=== PATIENT | female | born 1970 | race American Indian/Alaskan Native ===

== ENCOUNTER 2018-04-09 19:49 | Emergency (ER) | payer MEDICAID ==
[2018-04-09 20:15] VITALS: BP 119/73
[2018-04-09 20:36] LABS: Basophils # (Auto) 0.1 K/mm3 (0.0-0.1); Basophils % (Auto) 0.8 % (0.0-1.8); Eosinophils # (Auto) 0.2 K/mm3 (0.0-0.4); Eosinophils % (Auto) 2.3 % (0.0-4.3); Hematocrit 41.1 % (30.3-42.9); Hemoglobin 13.6 gm/dl (10.1-14.3); Lymphocytes # (Auto) 2.9 K/mm3 (1.2-5.4); Lymphocytes % (Auto) 42.4 % (13.4-35.0); Mean Corpuscular HGB Conc 33 % (30-34); Mean Corpuscular Volume 89 fl (79-97); Monocytes # (Auto) 0.4 K/mm3 (0.0-0.8); Monocytes % (Auto) 6.4 % (0.0-7.3); Platelet Count 278 K/mm3 (140-440); Red Cell Distribution Width 15.4 % (13.2-15.2)
[2018-04-09 21:12] LABS: Alanine Aminotransferase 13 units/L (7-56); Albumin 4.4 g/dL (3.9-5); BUN/Creatinine Ratio 10; Blood Urea Nitrogen 9 mg/dL (7-17); Calcium 9.7 mg/dL (8.4-10.2); Hemolysis Index 4
[2018-04-09] MEDS ORDERED: NORCO 5/325 PO ONE ×2 (21:46→23:16)
--- NOTE | 2018-04-09 21:50 | Emergency Department Report ---
ED Extremity Problem HPI - General Chief complaint: Extremity Problem,Nontraumatic Stated complaint: BILATERAL LOWER LEG PAIN Time Seen by Provider: 04/09/18 21:38 Source: patient, EMS Mode of arrival: Wheelchair Limitations: No Limitations - History of Present Illness Initial comments: Patient is a 47-year-old female with history of bilateral DVTs and PEs patient self DC'd Lovenox and Coumadin 9 months ago states she started having bilateral lower extremity pain swelling or calf tenderness 1 week ago now unable to ambulate on left leg pain is described at 8/10 tightness sensation patient states any shortness of breath there's no wheezing no nausea vomiting no chest pain no fever chills MD Complaint: extremity pain, extremity swelling Onset/Timin -: week(s) Location: bilateral lower extremity History of Same: Yes (bilat DVT ) Radiation: distal Severity scale (0 -10): 6 Quality: aching, sharp Consistency: constant Improves with: nothing Worsens with: walking Associated Symptoms: shortness of breath - Related Data Allergies Allergy/AdvReac Type Severity Reaction Status Date / Time No Known Allergies Allergy Unverified 04/09/18 20:05 ED Review of Systems ROS: Stated complaint: BILATERAL LOWER LEG PAIN Other details as noted in HPI Constitutional: denies: chills, fever Eyes: denies: eye pain, eye discharge, vision change ENT: denies: ear pain, throat pain Respiratory: denies: cough, shortness of breath, wheezing Cardiovascular: denies: chest pain, palpitations Endocrine: no symptoms reported Gastrointestinal: denies: abdominal pain, nausea, vomiting, diarrhea Genitourinary: denies: urgency, dysuria, discharge Musculoskeletal: myalgia, other (bilat le edema pain distal pulse +3 bialt calf tenderness bilat ) Skin: denies: rash, lesions Neurological: denies: headache, weakness, paresthesias Psychiatric: denies: anxiety, depression Hematological/Lymphatic: denies: easy bleeding, easy bruising ED Past Medical Hx - Past Medical History Previous Medical History?: Yes Hx Deep Vein Thrombosis: Yes Additional medical history: coumadin - Surgical History Past Surgical History?: No - Social History Smoking Status: Former Smoker Substance Use Type: None ED Physical Exam - General Limitations: No Limitations General appearance: alert, in no apparent distress - Head Head exam: Present: atraumatic, normocephalic - Eye Eye exam: Present: normal appearance, PERRL, EOMI Pupils: Present: normal accommodation - ENT ENT exam: Present: mucous membranes moist - Neck Neck exam: Present: normal inspection, full ROM. Absent: lymphadenopathy, thyromegaly - Respiratory Respiratory exam: Present: normal lung sounds bilaterally. Absent: respiratory distress, wheezes, stridor, chest wall tenderness - Cardiovascular Cardiovascular Exam: Present: regular rate, normal rhythm, normal heart sounds. Absent: systolic murmur, diastolic murmur, rubs, gallop - GI/Abdominal GI/Abdominal exam: Present: soft, normal bowel sounds. Absent: distended, tenderness, bruit, hernia - Rectal Rectal exam: Present: deferred - Extremities Exam Extremities exam: Present: full ROM, tenderness (bilat calf tenderness swelling distal pulses +3 ), normal capillary refill, pedal edema (mild ), calf tenderness (bilat ). Absent: joint swelling - Expanded Lower Extremity Exam Left Lower Leg exam: Present: full ROM, tenderness, swelling, Briana's sign. Absent: abrasion, laceration, ecchymosis, deformity, crepidus, dislocation, erythema, palpable cord Ankle exam: Present: normal inspection, full ROM Foot/Toe exam: Present: normal inspection, full ROM Gait: Positive: observed and limited by pain Right Lower Leg exam: Present: full ROM, tenderness, swelling, Briana's sign. Absent: abrasion, laceration, ecchymosis, deformity, crepidus, dislocation, erythema, palpable cord Gait: Positive: observed and limited by pain - Back Exam Back exam: Present: normal inspection, full ROM, muscle spasm. Absent: tenderness, CVA tenderness (R), CVA tenderness (L), paraspinal tenderness, vertebral tenderness, rash noted - Neurological Exam Neurological exam: Present: alert, oriented X3, CN II-XII intact, reflexes normal. Absent: motor sensory deficit - Psychiatric Psychiatric exam: Present: normal affect, normal mood - Skin Skin exam: Present: warm, dry, intact, normal color. Absent: rash ED Course Vital Signs 04/09/18 20:06 Temperature 98.7 F Pulse Rate 83 Respiratory 20 Rate Blood Pressure 119/73 O2 Sat by Pulse 95 Oximetry ED Medical Decision Making - Lab Data Result diagrams: 04/09/18 20:28 04/09/18 20:28 - Radiology Data Radiology results: report reviewed, image reviewed FINAL REPORT PROCEDURE: CT ANGIO CHEST TECHNIQUE: Computerized tomographic angiography of the chest was performed after the IV injection of iodinated nonionic contrast including image processing. The image data was postprocessed using 2- dimensional multiplanar reformatted (MPR) and 3-dimensional (MIP and/or volume rendered) techniques. HISTORY: sob COMPARISON: No prior studies are available for comparison. FINDINGS: Heart and pericardium: Normal. Thoracic aorta: Normal. Pulmonary vasculature: Normal. Lymph nodes: No enlarged thoracic lymph nodes. Lungs: The lungs are clear. No infiltrate, effusion or pneumothorax. Central airway is patent. Pleural space: No effusion, thickening, or pneumothorax. Musculoskeletal structures: No significant abnormality. Upper abdominal structures: There is a small hiatal hernia.. IMPRESSION: There is no evidence of pulmonary arterial emboli. The lungs are clear without infiltrate, effusion or pneumothorax. Transcribed By: [facility] Dictated By: AMY QUINONES MD Electronically Authenticated By: AMY QUINONES MD Signed Date/Time: 04/09/18 7938 - Medical Decision Making CT is normal , DDimer 349, pt given Lovenox 100mg sq, hydrocodone, will dc to home with rx for tylenol 3, pt return in am for CV doppler dvt studies and return to ed if positive follow up with pcp if negativen pt verbalized agreement and understanding of same pt to home via po and family member at this time. Critical care attestation.: If time is entered above; I have spent that time in minutes in the direct care of this critically ill patient, excluding procedure time. ED Disposition Clinical Impression: Bilateral edema of lower extremity, Bilateral leg pain Disposition: DC-01 TO HOME OR SELFCARE Is pt being admited?: No Does the pt Need Aspirin: No Condition: Stable Referrals: ALEXIS MARTINEZ DO [Primary Care Provider] - 3-5 Days
[2018-04-09 22:09] LABS: INR 0.9 (0.87-1.13); Partial Thromboplastin Time 28.9 Sec. (24.2-36.6)
--- NOTE | 2018-04-09 23:02 | Cat Scan Report ---
FINAL REPORT PROCEDURE: CT ANGIO CHEST TECHNIQUE: Computerized tomographic angiography of the chest was performed after the IV injection of iodinated nonionic contrast including image processing. The image data was postprocessed using 2-dim ensional multiplanar reformatted (MPR) and 3-dimensional (MIP and/or volume rendered) techniques. HISTORY: sob COMPARISON: No prior studies are available for comparison. FINDINGS: Heart and pericardium: Normal. Thoracic aorta: Normal. Pulmonary vasculature: Normal. Lymph nodes: No enlarged thoracic lymph nodes. Lungs: The lungs are clear. No infiltrate, effusion or pneumothorax. Central airway is patent. Pleural space: No effusion, thickening, or pneumothorax. Musculoskeletal structures: No significant abnormality. Upper abdominal structures: There is a small hiatal hernia.. IMPRESSION: There is no evidence of pulmonary arterial emboli. The lungs are clear without infiltrate, effusion or pneumothorax.
[2018-04-09] MEDS ORDERED: LOVENOX SUB-Q ONE (23:07)
== END 2018-04-09 23:40 | disposition home or self-care (01) ==
LOC: ED 19:49
DX: R60.0 Localized edema (principal); Z87.891 Personal history of nicotine dependence; Z86.718 Personal history of other venous thrombosis and embolism
CPT/HCPCS: 36415; 71275; 80053; 84484; 85025; 85379; 85610; 85730; 96372; 99284; J1650; Q9967

== ENCOUNTER 2019-02-11 09:23 | Emergency (ER) | payer MEDICAID ==
[2019-02-11 09:32] VITALS: BP 117/84
[2019-02-11] MEDS ORDERED: oxyCODONE /ACETAMINOPHEN 5-325MG TAB PO STA (10:44)
--- NOTE | 2019-02-11 11:35 | Vascular Lab Report ---
DUPLEX DOPPLER LOWER EXTREMITY VEINS, RIGHT INDICATION: calf pain and swelling. TECHNIQUE: Duplex doppler imaging was performed through the veins of the right lower extremity using venous comp ression and other maneuvers. COMPARISON: None available. FINDINGS: Common femoral vein: There is a linear band in the right common femoral vein this likely indicates ch ronic changes from prior DVT. This does not appear to be an acute DVT. Superficial femoral vein: Negative. Popliteal vein: Negative. Calf veins: Negative. Additional findings: There is some edema in the soft tissue along the lateral aspect of the right kne e IMPRESSION: 1. Bandlike density is noted in the right common femoral vein characteristic of chronic changes from prior DVT. No acute DVT is identified on today's study. 2. There is edema in the soft tissue along the lateral aspect of the knee. Signer Name: Gopal Wang MD Signed: 02/11/2019 11:30 AM Workstation Name: [id number]
--- NOTE | 2019-02-11 11:40 | XRay Report ---
CHEST 2 VIEWS INDICATION / CLINICAL INFORMATION: cough. COMPARISON: None available. FINDINGS: SUPPORT DEVICES: None. HEART / MEDIASTINUM: No significant abnormality. LUNGS / PLEURA: No significant pulmonary or pleural abnormality. .No pneumothorax. ADDITIONAL FINDINGS: No significant additional findings. IMPRESSION: 1. No acute findings. Signer Name: Gopal Wang MD Signed: 02/11/2019 11:36 AM Workstation Name: [id number]
--- NOTE | 2019-02-11 12:33 | Emergency Department Report ---
ED General Adult HPI - General Chief complaint: Extremity Injury, Lower Stated complaint: LEG PAIN/COLD/HEARTBURN Time Seen by Provider: 02/11/19 10:16 Source: patient, family Mode of arrival: Wheelchair Limitations: No Limitations - History of Present Illness Initial comments: 48-year-old morbidly obese Afro[place] female with a reported past medical history of lower extremity DVTs requiring Coumadin therapy which she has discontinued several months (over 1 year) ago doing to her doctor been unable to get her INR to appropriate range presents presents emergency department today with family complaining of a one to two-week history of of waxing and waning right calf pain associated with she feels a swelling. She also been having cough cold and congestion with yellow and green sputum production over the last 3 weeks have reports no fever, hemoptysis, hematemesis, hematochezia, chest pain, palpitations, nausea or vomiting. She does report having excessive acid reflux flareups with minimal oral intake. Severity scale (0 -10): 9 Quality: aching Consistency: constant Improves with: none Worsens with: movement Associated Symptoms: denies other symptoms, cough. denies: malaise, nausea/vomi ting, rash, syncope, weakness - Related Data Previous Rx's Medication Instructions Recorded Last Taken Type Acetaminophen/Codeine [Tylenol 1 tab PO Q6H PRN #12 tab 04/09/18 Unknown Rx /Codeine # 3 tab] ALBUTEROL Inhaler (OR & NICU) 2 puff IH QID PRN #1 inhalation 02/11/19 Unknown Rx [ProAir HFA Inhaler] Azithromycin [Zithromax] 500 mg PO QDAY #5 tablet 02/11/19 Unknown Rx predniSONE [Deltasone] 50 mg PO QDAY #5 tab 02/11/19 Unknown Rx Allergies Allergy/AdvReac Type Severity Reaction Status Date / Time No Known Allergies Allergy Unverified 04/09/18 20:05 ED Review of Systems ROS: Stated complaint: LEG PAIN/COLD/HEARTBURN Other details as noted in HPI Comment: All other systems reviewed and negative ED Past Medical Hx - Past Medical History Previous Medical History?: Yes Hx Deep Vein Thrombosis: Yes Additional medical history: coumadin - Surgical History Past Surgical History?: No - Social History Smoking Status: Never Smoker Substance Use Type: Alcohol - Medications Home Medications: Home Medications Medication Instructions Recorded Confirmed Last Taken Type Acetaminophen/Codeine [Tylenol 1 tab PO Q6H PRN #12 tab 04/09/18 Unknown Rx /Codeine # 3 tab] ALBUTEROL Inhaler (OR & NICU) 2 puff IH QID PRN #1 inhalation 02/11/19 Unknown Rx [ProAir HFA Inhaler] Azithromycin [Zithromax] 500 mg PO QDAY #5 tablet 02/11/19 Unknown Rx predniSONE [Deltasone] 50 mg PO QDAY #5 tab 02/11/19 Unknown Rx ED Physical Exam - General Limitations: No Limitations General appearance: alert, in no apparent distress - Head Head exam: Present: atraumatic, normocephalic - Eye Eye exam: Present: normal appearance - ENT ENT exam: Present: mucous membranes moist - Neck Neck exam: Present: normal inspection. Absent: lymphadenopathy - Respiratory Respiratory exam: Present: normal lung sounds bilaterally, rhonchi. Absent: respiratory distress, chest wall tenderness, accessory muscle use - Cardiovascular Cardiovascular Exam: Present: regular rate, normal rhythm. Absent: systolic murmur, diastolic murmur, rubs, gallop - GI/Abdominal GI/Abdominal exam: Present: soft, normal bowel sounds - Extremities Exam Extremities exam: Present: normal inspection, tenderness - Expanded Lower Extremity Exam Right Lower Leg exam: Present: tenderness, swelling (no pitting edema with minimal swelling to the legs bilaterally), Briana's sign (some discomfort with Homans sign noted). Absent: abrasion, laceration, ecchymosis, deformity, dislocation, palpable cord Foot/Toe exam: Present: normal inspection Neuro vascular tendon exam: Present: no vascular compromise - Back Exam Back exam: Present: normal inspection - Neurological Exam Neurological exam: Present: alert, oriented X3 - Psychiatric Psychiatric exam: Present: normal affect, normal mood - Skin Skin exam: Present: warm, dry, intact, normal color. Absent: rash ED Course Vital Signs 02/11/19 09:28 Temperature 97.6 F Pulse Rate 74 Respiratory 18 Rate Blood Pressure 117/84 O2 Sat by Pulse 97 Oximetry ED Medical Decision Making - Radiology Data Radiology results: report reviewed [facility] [address] [place] [address] Vascular Lab Report Signed Patient: JAYASHREE LEWIS MR#: [id number] : 1970 Acct:[id number] Age/Sex: 48 / F ADM Date: 02/11/19 Loc: ED Attending Dr: Ordering Physician: CEZAR CLANCY Date of Service: 02/11/19 Procedure(s): VL venous duplex LE RT Accession Number(s): [id number] cc: CEZAR CLANCY DUPLEX DOPPLER LOWER EXTREMITY VEINS, RIGHT INDICATION: calf pain and swelling. TECHNIQUE: Duplex doppler imaging was performed through the veins of the right lower extremity using venous compression and other maneuvers. COMPARISON: None available. FINDINGS: Common femoral vein: There is a linear band in the right common femoral vein this likely indicates chronic changes from prior DVT. This does not appear to be an acute DVT. Superficial femoral vein: Negative. Popliteal vein: Negative. Calf veins: Negative. Additional findings: There is some edema in the soft tissue along the lateral aspect of the right knee IMPRESSION: 1. Bandlike density is noted in the right common femoral vein characteristic of chronic changes from prior DVT. No acute DVT is identified on today's study. 2. There is edema in the soft tissue along the lateral aspect of the knee. Signer Name: Gopal Wang MD Signed: 02/11/2019 11:30 AM Workstation Name: [id number] Transcribed By: SS Dictated By: Gopal Wang MD Electronically Authenticated By: Gopal Wang MD Signed Date/Time: 02/11/19 [address] [address] [place] [address] XRay Report Signed Patient: JAYASHREE LEWIS MR#: [id number] : 1970 Acct:[id number] Age/Sex: 48 / F ADM Date: 02/11/19 Loc: ED Attending Dr: Ordering Physician: CEZAR CLANCY Date of Service: 02/11/19 Procedure(s): XR chest routine 2V Accession Number(s): [id number] cc: CEZAR CLANCY Fluoro Time In Minutes: CHEST 2 VIEWS INDICATION / CLINICAL INFORMATION: cough. COMPARISON: None available. FINDINGS: SUPPORT DEVICES: None. HEART / MEDIASTINUM: No significant abnormality. LUNGS / PLEURA: No significant pulmonary or pleural abnormality. .No pneumothorax. ADDITIONAL FINDINGS: No significant additional findings. IMPRESSION: 1. No acute findings. Signer Name: Gopal Wang MD Signed: 02/11/2019 11:36 AM Workstation Name: [id number] Transcribed By: SS Dictated By: Gopal Wang MD Electronically Authenticated By: Gopal Wang MD Signed Date/Time: 02/11/19 1136 DD/ 1127 - Medical Decision Making Ms Lewis presents with acute cough, most consistent with bronchitis. Differential diagnosis includes asthma, pneumonia, hyperactive airway disease, seasonal allergies. Presentation not consistent with acute bacterial pneumonia, influenza, asthma, transient airway hyperresponsiveness. Presentation not consistent with chronic causes of cough (including GERD, asthma, postnasal discharge, medication side effect, CHF, lung cancer or mass). Plan: CXR, supportive care, reassess Discussed with _ natural course of fever with viral illness, fever's function in body in fighting viral pathogens, my concern more for how a patient appears and acts (lethargy, irritability no po intake) as opposed to specific height of fever, expectation that fever will return when antipyretics wear off and normality of that occurrence, and appropriate dosing of antipyretics Critical care attestation.: If time is entered above; I have spent that time in minutes in the direct care of this critically ill patient, excluding procedure time. ED Disposition Clinical Impression: Cough, Right leg pain, Leg edema Disposition: DC-01 TO HOME OR SELFCARE Is pt being admited?: No Does the pt Need Aspirin: No Condition: Stable Instructions: Leg Edema (ED), Cold Symptoms (ED) Additional Instructions: Follow up with your Primary Care Doctor within 48-72 hours for further evaluation. Please rest and drink plenty of fluids to remain hydrated. Please wash your hands regularly. Please take Acetaminophen every 6 hours for pain or temp greater than 100. If you have any worsening or continued fever, chills, weakness, nausea, vomiting, abdominal pain return to ED. - General Chief Complaint: Extremity Injury, Lower Stated Complaint: LEG PAIN/COLD/HEARTBURN Time Seen by Provider: 02/11/19 10:16 Source: patient, family Mode of arrival: Wheelchair Limitations: No Limitations - History of Present Illness Complaint: cough, rhinorrhea, nasal congestion -: week(s) (3) Severity: mild, moderate Improves With: nothing Worsens With: nothing Associated Symptoms: rhinorrhea - Related Data Previous Rx's Medication Instructions Recorded Last Taken Type Acetaminophen/Codeine [Tylenol 1 tab PO Q6H PRN #12 tab 04/09/18 Unknown Rx /Codeine # 3 tab] ALBUTEROL Inhaler (OR & NICU) 2 puff IH QID PRN #1 inhalation 02/11/19 Unknown Rx [ProAir HFA Inhaler] Azithromycin [Zithromax] 500 mg PO QDAY #5 tablet 02/11/19 Unknown Rx predniSONE [Deltasone] 50 mg PO QDAY #5 tab 02/11/19 Unknown Rx Allergies Allergy/AdvReac Type Severity Reaction Status Date / Time No Known Allergies Allergy Unverified 04/09/18 20:05
== END 2019-02-11 13:14 | disposition home or self-care (01) ==
LOC: ED 09:23
DX: M79.604 Pain in right leg (principal); R05 Cough; R09.81 Nasal congestion; J34.89 Other specified disorders of nose and nasal sinuses; Z86.718 Personal history of other venous thrombosis and embolism; Z79.01 Long term (current) use of anticoagulants; Z79.899 Other long term (current) drug therapy
CPT/HCPCS: 71046